=== PATIENT | male | born 1990 | race Hispanic/Latino ===

== ENCOUNTER → 2021-11-12 | Outpatient (CLI) | payer MEDICARE | END | disposition home or self-care (01) | LOC: RAH 12:53 | PROVIDERS: ATTEND Family Medicine | DX: M54.2 Cervicalgia (principal); R51.9 Headache, unspecified | CPT/HCPCS: 70551; 72141 ==

== ENCOUNTER 2023-03-30 04:38 | Emergency (ER) | payer MEDICARE ==
[~2023-03-30] VITALS: Ht 167.6 cm; Wt 79.4 kg
[2023-03-30] MEDS ORDERED: METOCLOPRAMIDE 10 MG/2 ML VIAL ONE (05:18)
[2023-03-30] MEDS ORDERED: DiphenhydrAMINE HCL 50 MG/ML VIAL ONE (05:19)
[2023-03-30] MEDS ORDERED: METOCLOPRAMIDE 10 MG/2 ML VIAL IVP ONE (05:30)
[2023-03-30] MEDS ORDERED: KETOROLAC 30MG VIAL (30MG/ML) IVP ONE (05:30)
[2023-03-30] MEDS ORDERED: DiphenhydrAMINE HCL 50 MG/ML VIAL IV ONE (05:30)
[2023-03-30] MEDS ORDERED: IBUP-1493 PO (06:06)
[2023-03-30 06:30] VITALS: BP 132/82
== END 2023-03-30 06:49 | disposition home or self-care (01) ==
LOC: EDH 04:38
DX: G43.909 Migraine, unspecified, not intractable, without status migrainosus (principal); Z98.890 Other specified postprocedural states
CPT/HCPCS: 99285; 96374; 70450; 96375; J1200; J1885; J2765

== ENCOUNTER → 2023-07-17 | Outpatient (CLI) | payer MEDICARE ==
[~2023-07-17] MED LIST: IBUP-1493 PO
== END | disposition home or self-care (01) ==
LOC: RAH 09:36
PROVIDERS: ATTEND Physical Medicine & Rehabilitation
DX: M54.16 Radiculopathy, lumbar region (principal); M54.51 Vertebrogenic low back pain
CPT/HCPCS: 72148

== ENCOUNTER → 2023-08-14 | Outpatient (CLI) | payer MEDICARE | END | disposition home or self-care (01) | LOC: RAH 13:38 | PROVIDERS: ATTEND Physical Medicine & Rehabilitation | DX: M47.816 Spondylosis without myelopathy or radiculopathy, lumbar region (principal) | CPT/HCPCS: 72131 ==

== ENCOUNTER 2023-09-12 21:03 | Emergency (ER) | payer MEDICARE ==
[~2023-09-12] VITALS: Ht 177.8 cm; Wt 70.8 kg
[2023-09-13 00:30] LABS: APPEARANCE,URINE CLEAR (CLEAR); BILIRUBIN,URINE NEGATIVE (NEGATIVE); COLOR,URINE YELLOW (YELLOW); GLUCOSE, URINE (UA) NEGATIVE (NEGATIVE); KETONES,URINE 60 mg/dL (NEGATIVE); LEUKOCYTE ESTERASE ,URINE NEGATIVE Leu/uL (NEGATIVE); NITRATE,URINE NEGATIVE (NEGATIVE); OCCULT BLOOD,URINE SMALL (NEGATIVE); PH,URINE 5.5 (5.0-8.0); PROTEIN,URINE 30 mg/dL (NEGATIVE); UROBILINOGEN,URINE 0.2 mg/dL (0.2-1.0)
[2023-09-13] MEDS ORDERED: 0.9%NACL 1000ML 1,461 ML IV ONE (00:30)
[2023-09-13 00:42] LABS: BASOPHILS # (AUTO) 0.03 K/uL (0.00-0.20); BASOPHILS % (AUTO) 0.2 % (0.0-5.0); HEMATOCRIT 48.8 % (42-54); IMMATURE GRANULOCYTE ABSOLUTE 0.06 K/uL (0-1); LYMPHOCYTES # (AUTO) 1.5 K/uL (1.0-4.8); LYMPHOCYTES % (AUTO) 11.9 % (21.0-51.0); MEAN CORPUSCULAR HEMOGLOBIN 29.5 pg (27.0-33.0); MEAN CORPUSCULAR HGB CONC 33.4 g/dL (32.0-36.0); MEAN CORPUSCULAR VOLUME 88.2 fL (79-99); MONOCYTES # (AUTO) 0.4 K/uL (0.1-1.0); MONOCYTES % (AUTO) 3.2 % (3.0-13.0); NEUTROPHILS # (AUTO) 10.9 K/uL (1.8-7.7); NEUTROPHILS % (AUTO) 84.2 % (40.0-77.0); PLATELET COUNT (AUTO) 230 K/uL (130-400); RED BLOOD CELL COUNT(AUTO) 5.53 MIL/uL (4.50-6.20); WHITE BLOOD COUNT (AUTO) 12.9 K/uL (4.8-10.8)
[2023-09-13 00:48] LABS: ADD UA MICROSCOPIC YES
[2023-09-13 00:52] LABS: CREATININE 1.1 mg/dL (0.5-1.5)
[2023-09-13 00:55] LABS: ALBUMIN 4.9 g/dL (3.5-5.0); BILIRUBIN,TOTAL 0.8 mg/dL (0.2-1.0); TOTAL PROTEIN, SERUM 8.7 g/dL (6.0-8.3)
[2023-09-13 01:18] LABS: BACTERIA,URINE None Seen /HPF (None Seen); SQUAMOUS EPITHELIAL CELL,UR Rare /HPF (0-2)
[2023-09-13 01:19] LABS: WBC,URINE 0-1 /HPF (0-1)
[2023-09-13 01:20] LABS: MUCUS,URINE Few LPF (None Seen); RBC,URINE 0-1 /HPF (0-1)
[2023-09-13 01:56] VITALS: BP 116/72; PULSE 65; RESP 16; O2SAT 100
== END 2023-09-13 01:57 | disposition home or self-care (01) ==
LOC: EDH 21:03
DX: T67.5XXA Heat exhaustion, unspecified, initial encounter (principal); E86.0 Dehydration; X58.XXXA Exposure to other specified factors, initial encounter; Y93.89 Activity, other specified; Y92.89 Other specified places as the place of occurrence of the external cause; Y99.8 Other external cause status
CPT/HCPCS: 99283; 80053; 85025; 81001; 36415; 96360; J7030

== ENCOUNTER → 2023-11-14 | Outpatient (CLI) | payer MEDICARE | END | disposition home or self-care (01) | LOC: RAH 09:05 | PROVIDERS: ATTEND Physical Medicine & Rehabilitation | DX: M25.512 Pain in left shoulder (principal); M75.112 Incomplete rotator cuff tear or rupture of left shoulder, not specified as traumatic | CPT/HCPCS: 73030; 73221 ==